=== PATIENT | female | born 1940 | race Caucasian/White ===

== ENCOUNTER 2017-04-05 21:05 | Inpatient (IN) ==
--- NOTE | 2017-04-05 21:26 | Emergency Department Note ---
Disposition Clinical Impression: Urinary tract infection Qualifiers: Urinary tract infection type: acute cystitis Hematuria presence: without hematuria Qualified Code(s): N30.00 - Acute cystitis without hematuria Altered mental status Qualifiers: Altered mental status type: transient alteration of awareness Qualified Code(s) : R40.4 - Transient alteration of awareness Disposition: Admitted As Inpatient Condition: Fair Referrals: Neal Jacobsen MD [Primary Care Provider] - Forms: Work/School Release, ED Satisfaction Letter Altered Mental Status HPI - General Chief Complaint: ED General Medical Stated Complaint: lethargy Time Seen by Provider: 04/05/17 21:23 Source: EMS Mode of arrival: EMS Limitations: altered mental status Nursing Notes Reviewed: Yes Vital Signs Reviewed: Yes - History of Present Illness HPI Narrative: Patient reportedly was difficult to arouse at the intermediate. She had been laying around most the day and she is reported to have an oxygen saturation of 70% on room air that increased to 93% on 5 L. She is afebrile with a temperature 99.3, respiratory rate of 28, heart rate 92 and blood pressure 119/ 61. Squad was called to have her brought in for evaluation and she was agitated and yelling out for the squad. Family notes that she has had episodes like this before when she has a urinary tract infection. She usually will yell out but she is understandable words here she is doing some random sounds and vocalization. She was able to wake up enough to tell me that she was "sleepy all day" she indicates that she had some soreness in her left shoulder that I was rubbing to get her to open her eyes and respond. She denied headache, chest pain, shortness of breath, abdominal pain, nausea or diarrhea. She has had this a second time that she was just sleepy. Shortly thereafter she again started relatively yelling and was agitated. complaint: altered mental status, decreased responsiveness Onset (ago): hour(s) Timing confirmed by: caregiver Pain Severity: moderate Consistency of Symptoms: waxing and waning Context: history of similar presentation, diabetes, COPD, history psychiatric disease Associated symptoms: Reports: malaise ("Sleepy all day"). Denies: chest pain, cough, diaphoresis, fever, chills, headaches, loss of appetite, nausea/vomiting , rash, seizure, shortness of breath, syncope, weakness, foul smelling urine, difficulty walking, diarrhea, incontinence - Related Data Home Medications Medication Instructions Recorded Confirmed Bisacodyl [Woman's Laxative] 10 mg PO DAILY PRN 04/05/17 04/05/17 Budesonide/Formoterol 160/4.5 1 puff IH BIDR 04/05/17 04/05/17 [Symbicort 160/4.5] CarBAMazepine XR [Tegretol Xr] 100 mg PO DAILY 04/05/17 04/05/17 Cetirizine HCl [Zyrtec] 10 mg PO DAILY 04/05/17 04/05/17 Chlorpromazine HCl 200 mg PO DAILY 04/05/17 04/05/17 Citalopram [CeleXA] 20 mg PO DAILY 04/05/17 04/05/17 Clopidogrel [Plavix] 75 mg PO DAILY 04/05/17 04/05/17 Divalproex (24 HR) [Depakote ER 500 mg PO HS 04/05/17 04/05/17 (24 HR)] Divalproex Sodium [Depakote] 250 mg PO HS 04/05/17 04/05/17 Ergocalciferol (VITAMIN D2) 50,000 unit PO DAILY 04/05/17 04/05/17 [Vitamin D2] Fenofibrate Nanocrystallized 160 mg PO DAILY 04/05/17 04/05/17 [Triglide] Fluticasone Propionate Nasal 50 mcg NS DAILY 04/05/17 04/05/17 [Flonase] Furosemide [Lasix] 20 mg PO DAILY 04/05/17 04/05/17 HYDROcodone/Acet 5/325 mg [[place] 1 tab PO Q6H PRN 04/05/17 04/05/17 5-325 mg] Ibuprofen [Motrin] 600 mg PO Q6HR PRN 04/05/17 04/05/17 Insulin ASPART [NovoLOG] 1 unit SQ BID 04/05/17 04/05/17 Insulin Glargine [Lantus] 43 unit SQ HS 04/05/17 04/05/17 Lactulose [Kristalose] 20 gm PO DAILY PRN 04/05/17 04/05/17 Levothyroxine [Synthroid] 88 mcg PO 0630 04/05/17 04/05/17 Loperamide HCl [Imodium A-D] 2 mg PO Q4H PRN 04/05/17 04/05/17 Medroxyprogesterone Acetate 5 mg PO DAILY 04/05/17 04/05/17 [Provera] Metformin HCl [Fortamet] 500 mg PO DAILY 04/05/17 04/05/17 Metoprolol XL (24 HR) Succ [Toprol 50 mg PO DAILY 04/05/17 04/05/17 XL] Multivitamin [Multivitamins] 1 each PO DAILY 04/05/17 04/05/17 Ranitidine HCl [Acid Noodle Press Operator] 75 mg PO BID 04/05/17 04/05/17 Travoprost [Travatan Z] 5 ml OP BID 04/05/17 04/05/17 Trihexyphenidyl HCl 1 mg PO DAILY 04/05/17 04/05/17 carBAMazepine [Tegretol Xr] 200 mg PO BID 04/05/17 04/05/17 Allergies Allergy/AdvReac Type Severity Reaction Status Date / Time tuberculin, purified protein Allergy Hives Verified 04/05/17 21:08 deriva Limitations: ROS unobtainable due to patients medical condition Past Medical History - Past Medical History Attestation: Yes The following information was validated with the patient. 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 Absent: scleral icterus, conjunctival injection - ENT ENT exam: normal exam, normal oropharynx, mucous membranes moist - Neck Neck exam: Present: normal inspection, full ROM, trachea midline. Absent: tenderness, meningismus - Chest Chest inspection: Present: normal inspection, symmetric chest wall rise - Respiratory Respiratory exam: Present: normal lung sounds bilaterally. Absent: respiratory distress, wheezes, prolonged expiratory phase - Cardiovascular Cardiovascular exam: Present: regular rate, normal rhythm, normal heart sounds - Abdominal Exam Abdominal exam: Present: soft, Non-Tender, normal bowel sounds. Absent: tenderness, distention, guarding, rebound, rigidity - Extremities Exam Extremities exam: Present: normal inspection, full ROM, normal capillary refill. Absent: tenderness, pedal edema, calf tenderness - Expanded Lower Extremity Exam Neurovascular/Tendon exam: Present: normal capillary refill. Absent: motor deficit, sensory deficit, tendon deficit Gait: observed and normal - Back Exam Back exam: Present: normal inspection, full ROM. Absent: tenderness, CVA tenderness (R), CVA tenderness (L) - Neurological Exam Neurological exam: Present: alert. Absent: oriented X3 - Psychiatric Psychiatric exam: Present: agitated, anxious - Skin Skin exam: Present: warm, dry, intact, normal color. Absent: rash, diaphoresis , pallor Course Course Narrative: With return of all labs and imaging, the patient appears to have altered mental status again secondary to urinary tract infection. Care has been discussed with the family and subsequently with Dr. Gibson. Verbal orders have been obtained for the patient's observation. Vital Signs Temperature 99.7 F H 04/05/17 21:08 Pulse Rate 91 04/05/17 21:08 Respiratory Rate 28 04/05/17 21:08 Blood Pressure 125/61 04/05/17 21:08 O2 Sat by Pulse Oximetry 91 04/05/17 21:08 Temperature 99.7 F H 04/05/17 21:08 Pulse Rate 94 04/05/17 23:01 Respiratory Rate 16 04/05/17 23:01 Blood Pressure 128/66 04/05/17 23:01 O2 Sat by Pulse Oximetry 94 04/05/17 23:01 Oxygen Delivery Oxygen Delivery Nasal Cannula Altered Mental Status - Differential Diagnosis Likely: altered mental status, delirium, hypoglycemia, hyponatremia, psychiatric disease, sepsis - Medical Records Medical records reviewed: Yes I reviewed the patient's medical records. - Lab Data Lab results reviewed: Yes I reviewed the patient's lab results. Result diagrams: 04/05/17 21:48 04/05/17 21:48 Lab Results 04/05/17 04/05/17 04/05/17 Range/Units 21:24 21:39 21:39 WBC (4.3-11.1) K/mcL RBC (3.82-4.97) M/mcL Hgb (11.5-15.4) g/dL Hct (35.3-44.9) % MCV (83.0-100.0) fL MCH (28.0-33.3) pg MCHC (31.6-35.5) g/dL RDW (11.5-14.5) % Plt Count (140-400) K/mcL MPV (9.4-12.4) fL Immature Gran % (0-4) % Seg Neutrophils % % Lymphocytes % % Monocytes % % Eosinophils % % Basophils % % Neutrophils # (1.6-8.9) K/mcL Lymphocytes # (0.6-4.6) K/mcL Monocytes # (0.0-1.3) K/mcL Eosinophils # (0.0-0.6) K/mcL Basophils # (0.0-0.2) K/mcL PT (9.4-12.1) Seconds INR APTT (26.0-36.0) Seconds ABG pH (7.32-7.45) pH Units ABG pCO2 (35-45) mmHg ABG pO2 (85-104) mmHg ABG HCO3 (21-27) mEq/L ABG Total CO2 (20-26) mEq/L ABG O2 Saturation (95-98) % ABG Base Excess (-2.0 to 3.0) mEq/L VBG Lactic Acid (0.5-2.2) mmol/L Liter Flow L/MIN Blood Gas Modality Sodium (136-145) mEq/L Potassium (3.5-4.5) mEq/L Chloride (98-109) mEq/L Carbon Dioxide (19-29) mEq/L BUN (7-20) mg/dL Creatinine (0.57-1.11) mg/dL Est GFR ( Amer) (> 60) Est GFR (Non-Af Amer) (> 60) BUN/Creatinine Ratio (6-26) Glucose (70-99) mg/dL POC Glucose 344 H (58-89) Calculated Osmolality (280-300) Calcium (8.6-10.8) mg/dL Total Bilirubin (0.2-1.2) mg/dL Direct Bilirubin (0.0-0.5) mg/dL Indirect Bilirubin (0.0-1.2) mg/dL AST (5-34) Units/L ALT (0-55) Units/L Alkaline Phosphatase (38-126) Units/L Troponin I (0-0.03) ng/mL Serum Total Protein (6.0-8.3) g/dL Albumin (3.5-5.0) g/dL Globulin (2.4-3.5) g/dL Albumin/Globulin Ratio (1.1-2.2) Ur Specimen Adequacy See below A Urine Color Dark Yellow (Yellow) Urine Clarity Turbid A (Clear) Urine pH 6.0 (5.0-8.0) pH Units Ur Specific [place] 1.020 (1.010-1.025) Urine Protein 100 H (Neg-Trace) mg/dL Urine Glucose (UA) Normal (Normal) mg/dL Urine Ketones Negative (Negative) mg/dL Urine Blood Small H (Negative) Urine Nitrite Negative (Negative) Urine Bilirubin Moderate H (Negative) Urine Urobilinogen 2.0 H (Normal) mg/dL Ur Leukocyte Esterase Large H (Negative) Urine Microscopic RBC 3-5 H (0-3) per hpf Urine Microscopic WBC TNTC H (0-3) per hpf Ur Squamous Epith Cells Few (None-Few) per lpf Ur Transition Epith Cell Few (None-Few) per hpf Urine Bacteria Many H (None-Few) per hpf Ur Culture Indicated? YES A (NO) Urine Opiates Screen Negative (Ikolbe=430) ng/mL Ur Oxycodone Screen Negative (Cutoff= 100) ng/mL Ur Barbiturates Screen Negative (Vjidkj=646) ng/mL Ur Phencyclidine Scrn Negative (Cutoff=25) ng/mL Ur Amphetamines Screen Negative (Ktofcz=4356) ng/mL U Benzodiazepines Scrn Negative (Jwqgib=317) ng/mL Urine Cocaine Screen Negative (Cutoff= 300) ng/mL U Marijuana (THC) Screen Negative (Cutoff = 50) ng/mL 04/05/17 04/05/17 04/05/17 Range/Units 21:48 21:48 21:48 WBC 8.1 (4.3-11.1) K/mcL RBC 4.02 (3.82-4.97) M/mcL Hgb 11.8 (11.5-15.4) g/dL Hct 37.3 (35.3-44.9) % MCV 92.8 (83.0-100.0) fL MCH 29.4 (28.0-33.3) pg MCHC 31.6 (31.6-35.5) g/dL RDW 13.3 (11.5-14.5) % Plt Count 297 (140-400) K/mcL MPV 9.9 (9.4-12.4) fL Immature Gran % 1.2 (0-4) % Seg Neutrophils % 68.1 % Lymphocytes % 12.4 % Monocytes % 15.7 % Eosinophils % 1.7 % Basophils % 0.9 % Neutrophils # 5.5 (1.6-8.9) K/mcL Lymphocytes # 1.0 (0.6-4.6) K/mcL Monocytes # 1.3 (0.0-1.3) K/mcL Eosinophils # 0.1 (0.0-0.6) K/mcL Basophils # 0.1 (0.0-0.2) K/mcL PT 14.6 H (9.4-12.1) Seconds INR 1.3 APTT 33.4 (26.0-36.0) Seconds ABG pH (7.32-7.45) pH Units ABG pCO2 (35-45) mmHg ABG pO2 (85-104) mmHg ABG HCO3 (21-27) mEq/L ABG Total CO2 (20-26) mEq/L ABG O2 Saturation (95-98) % ABG Base Excess (-2.0 to 3.0) mEq/L VBG Lactic Acid (0.5-2.2) mmol/L Liter Flow L/MIN Blood Gas Modality Sodium 131 L (136-145) mEq/L Potassium 4.9 H (3.5-4.5) mEq/L Chloride 91 L (98-109) mEq/L Carbon Dioxide 30 H (19-29) mEq/L BUN 26 H (7-20) mg/dL Creatinine 1.30 H (0.57-1.11) mg/dL Est GFR ( Amer) 48 L (> 60) Est GFR (Non-Af Amer) 40 L (> 60) BUN/Creatinine Ratio 20 (6-26) Glucose 274 H (70-99) mg/dL POC Glucose (58-89) Calculated Osmolality 287 (280-300) Calcium 9.8 (8.6-10.8) mg/dL Total Bilirubin 0.6 (0.2-1.2) mg/dL Direct Bilirubin 0.4 (0.0-0.5) mg/dL Indirect Bilirubin 0.2 (0.0-1.2) mg/dL AST 25 (5-34) Units/L ALT 28 (0-55) Units/L Alkaline Phosphatase 84 (38-126) Units/L Troponin I (0-0.03) ng/mL Serum Total Protein 6.9 (6.0-8.3) g/dL Albumin 2.7 L (3.5-5.0) g/dL Globulin 4.2 H (2.4-3.5) g/dL Albumin/Globulin Ratio 0.6 L (1.1-2.2) Ur Specimen Adequacy Urine Color (Yellow) Urine Clarity (Clear) Urine pH (5.0-8.0) pH Units Ur Specific [place] (1.010-1.025) Urine Protein (Neg-Trace) mg/dL Urine Glucose (UA) (Normal) mg/dL Urine Ketones (Negative) mg/dL Urine Blood (Negative) Urine Nitrite (Negative) Urine Bilirubin (Negative) Urine Urobilinogen (Normal) mg/dL Ur Leukocyte Esterase (Negative) Urine Microscopic RBC (0-3) per hpf Urine Microscopic WBC (0-3) per hpf Ur Squamous Epith Cells (None-Few) per lpf Ur Transition Epith Cell (None-Few) per hpf Urine Bacteria (None-Few) per hpf Ur Culture Indicated? (NO) Urine Opiates Screen (Apzqwo=912) ng/mL Ur Oxycodone Screen (Cutoff= 100) ng/mL Ur Barbiturates Screen (Ypdqcn=991) ng/mL Ur Phencyclidine Scrn (Cutoff=25) ng/mL Ur Amphetamines Screen (Fskaeg=5178) ng/mL U Benzodiazepines Scrn (Palwnu=867) ng/mL Urine Cocaine Screen (Cutoff= 300) ng/mL U Marijuana (THC) Screen (Cutoff = 50) ng/mL 04/05/17 04/05/17 04/05/17 Range/Units 21:48 22:00 22:30 WBC (4.3-11.1) K/mcL RBC (3.82-4.97) M/mcL Hgb (11.5-15.4) g/dL Hct (35.3-44.9) % MCV (83.0-100.0) fL MCH (28.0-33.3) pg MCHC (31.6-35.5) g/dL RDW (11.5-14.5) % Plt Count (140-400) K/mcL MPV (9.4-12.4) fL Immature Gran % (0-4) % Seg Neutrophils % % Lymphocytes % % Monocytes % % Eosinophils % % Basophils % % Neutrophils # (1.6-8.9) K/mcL Lymphocytes # (0.6-4.6) K/mcL Monocytes # (0.0-1.3) K/mcL Eosinophils # (0.0-0.6) K/mcL Basophils # (0.0-0.2) K/mcL PT (9.4-12.1) Seconds INR APTT (26.0-36.0) Seconds ABG pH 7.25 L (7.32-7.45) pH Units ABG pCO2 78 H* (35-45) mmHg ABG pO2 76 L (85-104) mmHg ABG HCO3 34 H (21-27) mEq/L ABG Total CO2 36.3 H (20-26) mEq/L ABG O2 Saturation 91 L (95-98) % ABG Base Excess 6.6 H (-2.0 to 3.0) mEq/L VBG Lactic Acid 0.8 (0.5-2.2) mmol/L Liter Flow 4 L/MIN Blood Gas Modality NC Sodium (136-145) mEq/L Potassium (3.5-4.5) mEq/L Chloride (98-109) mEq/L Carbon Dioxide (19-29) mEq/L BUN (7-20) mg/dL Creatinine (0.57-1.11) mg/dL Est GFR ( Amer) (> 60) Est GFR (Non-Af Amer) (> 60) BUN/Creatinine Ratio (6-26) Glucose (70-99) mg/dL POC Glucose (58-89) Calculated Osmolality (280-300) Calcium (8.6-10.8) mg/dL Total Bilirubin (0.2-1.2) mg/dL Direct Bilirubin (0.0-0.5) mg/dL Indirect Bilirubin (0.0-1.2) mg/dL AST (5-34) Units/L ALT (0-55) Units/L Alkaline Phosphatase (38-126) Units/L Troponin I 0.01 (0-0.03) ng/mL Serum Total Protein (6.0-8.3) g/dL Albumin (3.5-5.0) g/dL Globulin (2.4-3.5) g/dL Albumin/Globulin Ratio (1.1-2.2) Ur Specimen Adequacy Urine Color (Yellow) Urine Clarity (Clear) Urine pH (5.0-8.0) pH Units Ur Specific [place] (1.010-1.025) Urine Protein (Neg-Trace) mg/dL Urine Glucose (UA) (Normal) mg/dL Urine Ketones (Negative) mg/dL Urine Blood (Negative) Urine Nitrite (Negative) Urine Bilirubin (Negative) Urine Urobilinogen (Normal) mg/dL Ur Leukocyte Esterase (Negative) Urine Microscopic RBC (0-3) per hpf Urine Microscopic WBC (0-3) per hpf Ur Squamous Epith Cells (None-Few) per lpf Ur Transition Epith Cell (None-Few) per hpf Urine Bacteria (None-Few) per hpf Ur Culture Indicated? (NO) Urine Opiates Screen (Mzxmow=229) ng/mL Ur Oxycodone Screen (Cutoff= 100) ng/mL Ur Barbiturates Screen (Bzimny=565) ng/mL Ur Phencyclidine Scrn (Cutoff=25) ng/mL Ur Amphetamines Screen (Ylmwzk=9880) ng/mL U Benzodiazepines Scrn (Tdvqzi=034) ng/mL Urine Cocaine Screen (Cutoff= 300) ng/mL U Marijuana (THC) Screen (Cutoff = 50) ng/mL - Radiology Data Radiology results reviewed: Yes I reviewed the patient's radiology results. Single view chest x-ray is performed. This does not demonstrate evidence for infiltrate, effusion, pneumothorax, foreign body or heart failure. The cardiac silhouette is normal. I do not see abnormality to the osseous structures of the chest. This is on my interpretation. CT head is performed. This is reviewed on bone and soft tissue windows. There is no evidence for acute intracranial bleed, shift, mass or edema. The patient does have an intact shunt and apparent previous stroke. Mastoids and sinuses appear normal. There is no fracture evident. This is on my interpretation. Impressions Chest X-Ray 04/05/17 21:23 IMPRESSION: Suggestion of pulmonary vascular congestion. Otherwise negative limited portable chest radiograph. D/ / Erick Carranza MD / Erick Carranza MD Interpreting Provider: Erick Carranza MD Head CT 04/05/17 21:24 IMPRESSION: Limited study with no definite acute abnormality. Repeat imaging could be considered once the patient is able to remain still. D/ / Angelo Osuna MD / Angelo Osuna MD Interpreting Provider: Angelo Osuna MD - EKG Data EKG attestation: Yes I reviewed and interpreted this EKG. EKG shows normal: sinus rhythm, axis, QRS complexes, ST-T waves Rate: normal (95) Heart block present: 1st Degree Interpretation: no acute changes, other (Motion artifacts) TPA Checklist - LKW: 3-4.5 hrs Add. Warnings/Precautions Patient/family understanding: The patient/family members have been counseled and understood the risk, benefit , and alternatives of treatment.
[2017-04-05] MEDS ORDERED: 0.9 % Sodium Chloride 1,000 ML IVC SCH (21:30)
[2017-04-05 21:46] LABS: Bilirubin,Urine Moderate (Negative); Blood,Urine Small (Negative); Clarity,Urine Turbid (Clear); Color,Urine Dark Yellow (Yellow); Glucose,Urine (UA) Normal (Normal); Ketones,Urine Negative (Negative); Leukocyte Esterase,Urine Large (Negative); Nitrite,Urine Negative (Negative); Protein,Urine 100 mg/dL (Neg-Trace)
[2017-04-05 21:56] LABS: Basophils # 0.1 K/mcL (0.0-0.2); Basophils % 0.9 %; Eosinophils # 0.1 K/mcL (0.0-0.6); Eosinophils % 1.7 %; Hematocrit 37.3 % (35.3-44.9); Hemoglobin 11.8 g/dL (11.5-15.4); Immature Granulocytes % 1.2 % (0-4); Lymphocytes % 12.4 %; Mean Corpuscular HGB Conc 31.6 g/dL (31.6-35.5); Mean Corpuscular Hemoglobin 29.4 pg (28.0-33.3); Mean Corpuscular Volume 92.8 fL (83.0-100.0); Mean Platelet Volume 9.9 fL (9.4-12.4); Monocytes # 1.3 K/mcL (0.0-1.3); Monocytes % 15.7 %; Neutrophils # 5.5 K/mcL (1.6-8.9); Platelet Count 297 K/mcL (140-400); Red Blood Count 4.02 M/mcL (3.82-4.97); Red Cell Distribution Width 13.3 % (11.5-14.5); Segmented Neutrophils % 68.1 %
[2017-04-05 21:59] LABS: Bacteria,Urine Many per hpf (None-Few); Squamous Epithelial Cell,Urine Few per lpf (None-Few); Transitional Epi Cells,Urine Few per hpf (None-Few); WBC,Urine TNTC per hpf (0-3)
[2017-04-05 22:05] LABS: Amphetamine Screen,Urine Negative ng/mL (Cutoff=1000); Barbiturate Screen,Urine Negative ng/mL (Cutoff=200); Benzodiazepines Screen,Urine Negative ng/mL (Cutoff=200); Cannabinoid Screen,Urine Negative ng/mL (Cutoff = 50); Cocaine Screen,Urine Negative ng/mL (Cutoff= 300); Opiate Screen,Urine Negative ng/mL (Cutoff=300); Phencyclidine Screen,Urine Negative ng/mL (Cutoff=25)
[2017-04-05 22:06] LABS: Blood Gas Liter Flow 4 L/MIN
[2017-04-05] MEDS ORDERED: *HR* LORazepam 2 MG/ML VIAL IVP ONE (22:07)
[2017-04-05 22:08] LABS: INR 1.3; Prothrombin Time 14.6 Seconds (9.4-12.1)
[2017-04-05 22:09] LABS: ABG Base Excess 6.6 mEq/L (-2.0 to 3.0); ABG HCO3 34 mEq/L (21-27); ABG Oxygen Saturation 91 % (95-98); ABG PH 7.25 pH Units (7.32-7.45); ABG PO2 76 mmHg (85-104); ABG TCO2 36.3 mEq/L (20-26)
[2017-04-05 22:10] LABS: ABG PCO2 78 mmHg (35-45)
[2017-04-05 22:11] LABS: Activated Partial Thrombo Time 33.4 Seconds (26.0-36.0)
[2017-04-05 22:12] LABS: Albumin 2.7 g/dL (3.5-5.0); Albumin/Globulin Ratio 0.6 (1.1-2.2); Bilirubin,Direct 0.4 mg/dL (0.0-0.5); Bilirubin,Indirect 0.2 mg/dL (0.0-1.2); Bilirubin,Total 0.6 mg/dL (0.2-1.2); Calcium 9.8 mg/dL (8.6-10.8); Globulin 4.2 g/dL (2.4-3.5); Potassium 4.9 mEq/L (3.5-4.5); Total Protein 6.9 g/dL (6.0-8.3)
[2017-04-06] MEDS ORDERED: Albuterol 2.5 MG/3 ML NEBULIZER IH PRN (00:30)
[2017-04-06] MEDS ORDERED: Naloxone 0.4 MG/ML INJ IVP PRN (00:30)
[2017-04-06] MEDS ORDERED: *HR* Dextrose 50 % in Water (Syg) 50 ML SYRINGE IVP PRN (00:30)
[2017-04-06] MEDS ORDERED: Lactulose Oral Soln 20 GM/30 ML UDC PO PRN (00:30)
[2017-04-06] MEDS ORDERED: Ondansetron 4 MG/2 ML VIAL IVP PRN (00:30)
[2017-04-06] MEDS ORDERED: D5% in Water 1,000 ML IVC PRN (00:30)
[2017-04-06] MEDS ORDERED: Dextrose Gel 15 GM PO PRN ×2 (00:30)
[2017-04-06] MEDS ORDERED: Ibuprofen 600 MG TABLET PO PRN (00:30)
[2017-04-06] MEDS ORDERED: 0.9 % Sodium Chloride 1,000 ML IVC SCH (00:30)
[2017-04-06] MEDS: Ipratropium/Albuterol Neb 3 ML IH SCH ×2 (04:10→09:53)
[2017-04-06 08:16] LABS: ABG PH 7.26 pH Units (7.32-7.45)
[2017-04-06 08:17] LABS: ABG HCO3 34 mEq/L (21-27); ABG PCO2 75 mmHg (35-45); ABG PO2 75 mmHg (85-104)
[2017-04-06 08:18] LABS: ABG Base Excess 6.5 mEq/L (-2.0 to 3.0); ABG Oxygen Saturation 92 % (95-98); ABG TCO2 35.9 mEq/L (20-26); Blood Gas FiO2 32 %; Blood Gas Liter Flow 3 L/MIN
[2017-04-06] MEDS ORDERED: *HR* Metformin 500 MG TABLET PO SCH (09:00)
[2017-04-06] MEDS ORDERED: Famotidine 20 MG TABLET PO SCH (09:00)
[2017-04-06] MEDS ORDERED: Furosemide 20 MG TABLET PO SCH (09:00)
[2017-04-06] MEDS ORDERED: Loratadine 10 MG TABLET PO SCH (09:00)
[2017-04-06] MEDS: Miconazole 2% cream 118 GM TUBE TP SCH ×2 (09:17→16:35)
[2017-04-06] MEDS: Insulin LISPRO 300 UNITS/3 ML VIAL SQ SCH ×4 (10:28→21:11)
[2017-04-06] MEDS: Metoprolol XL (24 HR) Succ 50 MG TAB.ER.24H PO SCH (10:32)
[2017-04-06] MEDS: chlorproMAZINE 25 MG TABLET PO SCH (10:32)
[2017-04-06] MEDS: Fenofibrate 54 MG TABLET PO SCH (10:32)
[2017-04-06] MEDS: CarBAMazepine XR (12 hr) 100 MG TAB PO SCH ×3 (10:32→21:09)
[2017-04-06] MEDS: Latanoprost 2.5 ML BOTTLE BOTH EYES SCH ×2 (10:43→21:10)
--- NOTE | 2017-04-06 11:56 | Internal Med History&Physical ---
Date of Encounter: 04/06/17 Time of Encounter: 11:25 Assessment and Plan (1) Urinary tract infection Current visit: Yes Status: Acute She has been started on Rocephin. I will add lactobacillus. Urine culture has been ordered. Qualifiers: Urinary tract infection type: acute cystitis Hematuria presence: without hematuria Qualified Code(s): N30.00 - Acute cystitis without hematuria (2) Altered mental status Current visit: Yes Status: Acute Suspect multifactorial etiology. Will order BiPAP to improve respiratory status. Further workup will be done as needed. Qualifiers: Altered mental status type: unspecified Qualified Code(s): R41.82 - Altered mental status, unspecified (3) DM type 2 (diabetes mellitus, type 2) Current visit: Yes Status: Chronic Hemoglobin A1c was 6.2% on 02/10/2017. We will continue skilled nursing regimen and do Accu-Cheks with SSI. Qualifiers: Diabetes mellitus complication status: with kidney complications Diabetes mellitus complication detail: with chronic kidney disease Diabetes mellitus termite control servicer insulin use: with fdc use Chronic kidney disease stage: stage 3 (moderate) Qualified Code(s): E11.22 - Type 2 diabetes mellitus with diabetic chronic kidney disease; N18.3 - Chronic kidney disease, stage 3 ( moderate); Z79.4 - [facility] (current) use of insulin (4) CKD (chronic kidney disease) stage 3, GFR 30-59 ml/min Current visit: Yes Status: Chronic We will monitor renal indices periodically. (5) Hypothyroidism Current visit: Yes Status: Chronic TSH was normal at 1.930 02/10/2017. Continue Synthroid. Qualifiers: Hypothyroidism type: unspecified Qualified Code(s): E03.9 - Hypothyroidism , unspecified Internal Medicine - H&P: HPI Chief complaint: Obtundation Admitted From: Long-term Nursing Facility Plans for Post Hospital Care: Transfer [facility] History of present illness: Ms. Rodriguez is a 76 year old female who was sent to emergency from the skilled nursing after staff reported her to been lethargic most of the day. She was reported to have hypoxemia with saturation of 70% on room air. She had low grade fever. She was evaluated emergency room and felt to have UTI. ABG showed acute respiratory insufficiency with hypercarbia. She was admitted to [facility] floor for ongoing care needs. She is obtunded and could not give any additional history. Past Med Surg Social Fam HX - Past Medical History Medical history: atrial fibrillation, CHF, COPD, coronary artery disease, dementia, diabetes, GERD, hyperlipidemia, hypertension, thyroid disease, other Psychiatric history: anxiety, depression, schizophrenia - Past Surgical History Surgical History: knee replacement, orthopedic, other, other - Social History Smoking Status: Never smoker Smokeless Tobacco Status: No Alcohol use: none Drug use: none Internal Medicine - H&P: Meds Bisacodyl [Woman's Laxative] 10 mg PO DAILY PRN 04/05/17 [History] Budesonide/Formoterol 160/4.5 [Symbicort 160/4.5] 1 puff IH BIDR 04/05/17 [ History] CarBAMazepine XR [Tegretol Xr] 100 mg PO DAILY 04/05/17 [History] Cetirizine HCl [Zyrtec] 10 mg PO DAILY 04/05/17 [History] Chlorpromazine HCl 200 mg PO DAILY 04/05/17 [History] Citalopram [CeleXA] 20 mg PO DAILY 04/05/17 [History] Clopidogrel [Plavix] 75 mg PO DAILY 04/05/17 [History] Divalproex (24 HR) [Depakote ER (24 HR)] 500 mg PO HS 04/05/17 [History] Divalproex Sodium [Depakote] 250 mg PO HS 04/05/17 [History] Ergocalciferol (VITAMIN D2) [Vitamin D2] 50,000 unit PO DAILY 04/05/17 [History] Fenofibrate Nanocrystallized [Triglide] 160 mg PO DAILY 04/05/17 [History] Fluticasone Propionate Nasal [Flonase] 50 mcg NS DAILY 04/05/17 [History] Furosemide [Lasix] 20 mg PO DAILY 04/05/17 [History] HYDROcodone/Acet 5/325 mg [[place] 5-325 mg] 1 tab PO Q6H PRN 04/05/17 [History] Ibuprofen [Motrin] 600 mg PO Q6HR PRN 04/05/17 [History] Insulin ASPART [NovoLOG] 1 unit SQ BID 04/05/17 [History] Insulin Glargine [Lantus] 43 unit SQ HS 04/05/17 [History] Lactulose [Kristalose] 20 gm PO DAILY PRN 04/05/17 [History] Levothyroxine [Synthroid] 88 mcg PO 0630 04/05/17 [History] Loperamide HCl [Imodium A-D] 2 mg PO Q4H PRN 04/05/17 [History] Medroxyprogesterone Acetate [Provera] 5 mg PO DAILY 04/05/17 [History] Metformin HCl [Fortamet] 500 mg PO DAILY 04/05/17 [History] Metoprolol XL (24 HR) Succ [Toprol XL] 50 mg PO DAILY 04/05/17 [History] Multivitamin [Multivitamins] 1 each PO DAILY 04/05/17 [History] Ranitidine HCl [Acid Marine Insurance Claim Examiner] 75 mg PO BID 04/05/17 [History] Travoprost [Travatan Z] 5 ml OP BID 04/05/17 [History] Trihexyphenidyl HCl 1 mg PO DAILY 04/05/17 [History] carBAMazepine [Tegretol Xr] 200 mg PO BID 04/05/17 [History] 3 Allergy/AdvReac Type Severity Reaction Status Date / Time tuberculin, purified protein Allergy Hives Verified 04/05/17 21:08 deriva All Systems PM: A 10-system review of systems was performed and is negative for pertinent findings except as documented above in the HPI. Review of systems: Review of systems is unobtainable from the patient. The following is obtained from review of available records. Gen.: Her weight has decreased from 127.006 kg on 07/29/2014 to 115.53 kg today Cardiovascular: She has history of hypertension, CHF, and ASHD not otherwise specified, but no documented DVT or pulmonary embolus Respiratory: Her smoking history is not known. She has diagnosis of COPD and NANCY GI: There is no documented disorder of her liver gallbladder or exocrine pancreas. She has GERD : No mention of hematuria dysuria or kidney stones. She has had azotemia consistent with chronic kidney disease stage 2-3 from review of available labs. Neurologic: She has dementia. She has history of brain tumor not otherwise specified. She has had ventriculoperitoneal shunt placement for normal pressure hydrocephalus. Endocrine: She has DM 2 hypothyroidism and hyperlipidemia Hematology/oncology: History of blood disorders or cancers or anemia Psychiatric: She has depression and dementia and psychosis not otherwise specified Musk skeletal: There is no known gout or osteoporosis. - Constitutional Vitals: Temp Pulse Resp BP Pulse Ox 98.9 F 89 12 127/72 98 04/06/17 10:26 04/06/17 10:26 04/06/17 10:26 04/06/17 10:04/06/17 10:26 Exam: Gen.: She is a well-developed obese female lying in bed who appears comfortable. She does not respond to voice or light touch. She is wearing BiPAP. HEENT: Head is atraumatic and normocephalic. Eyes: She does not open her eyes spontaneously. Her gaze appears conjugate on manual elevation of the eyelids. Mouth: Mucosa is not visualized. The tip of her tongue appears dry. Neck: There is no thyromegaly or adenopathy noted. Heart: Regular without murmurs gallops or ectopics Lungs: No wheezes or crackles are heard. Abdomen: She has a large abdomen. No masses or guarding are noted. Extremities: There is no cyanosis edema or clubbing noted. Dorsalis pedis and posttibial pulses are trace palpable bilaterally. Neurologic: Mental status: She does not respond to voice or light touch. Cranial nerves: She makes no spontaneous facial movements. Her gaze appears conjugate. Motor: She has equal arm tone on passive range of motion. No further neurologic testing is attempted. Skin: She has widespread yeast infection of the skin on her back and left anterior lateral torso area. Internal Med - H&P Results - Labs CBC & Chem 7: 04/05/17 21:48 04/05/17 21:48 - ABG Interpretation ABG results: 04/06/17 08:00 ABG pH 7.26 L ABG pCO2 75 H* ABG pO2 75 L ABG HCO3 34 H ABG Total CO2 35.9 H ABG O2 Saturation 92 L ABG Base Excess 6.5 H - VTE Documentation of Mechanical Device: Graduated compression elastic hosiery
[2017-04-06 12:22] LABS: ABG PH 7.22 pH Units (7.32-7.45)
[2017-04-06 12:23] LABS: ABG Base Excess 6.5 mEq/L (-2.0 to 3.0); ABG HCO3 34 mEq/L (21-27); ABG Oxygen Saturation 96 % (95-98); ABG PCO2 84 mmHg (35-45); ABG PO2 103 mmHg (85-104); ABG TCO2 36.9 mEq/L (20-26)
[2017-04-06 12:24] LABS: Blood Gas BiPAP(E) 6 cm H2O; Blood Gas BiPAP(I) 12 cm H2O; Blood Gas FiO2 45 %; Blood Gas Respiration Rate 12
[2017-04-06] MEDS: Fluconazole 100 MG TABLET PO SCH (12:39)
[2017-04-06 14:33] LABS: ABG PH 7.23 pH Units (7.32-7.45)
[2017-04-06 14:34] LABS: ABG Base Excess 7.5 mEq/L (-2.0 to 3.0); ABG HCO3 35 mEq/L (21-27); ABG PCO2 83 mmHg (35-45); ABG PO2 98 mmHg (85-104); ABG TCO2 37.6 mEq/L (20-26)
[2017-04-06 14:35] LABS: ABG Oxygen Saturation 96 % (95-98); Blood Gas BiPAP(E) 8 cm H2O; Blood Gas BiPAP(I) 18 cm H2O; Blood Gas FiO2 45 %; Blood Gas Respiration Rate 12
[2017-04-06 20:26] LABS: ABG PH 7.23 pH Units (7.32-7.45)
[2017-04-06 20:27] LABS: ABG PCO2 89 mmHg (35-45); ABG PO2 120 mmHg (85-104)
[2017-04-06 20:28] LABS: ABG Base Excess 5.5 mEq/L (-2.0 to 3.0); ABG HCO3 37 mEq/L (21-27); ABG Oxygen Saturation 97 % (95-98); ABG TCO2 39.6 mEq/L (20-26); Blood Gas BiPAP(E) 8 cm H2O; Blood Gas BiPAP(I) 18 cm H2O; Blood Gas FiO2 45 %
[2017-04-06] MEDS ORDERED: INSULIN GLARGINE SQ SCH (21:00)
[2017-04-06] MEDS ORDERED: Divalproex (12 HR) 250 MG TABLET PO SCH (21:00)
[2017-04-06] MEDS ORDERED: Divalproex (24 HR) 500 MG TABLET PO SCH (21:00)
[2017-04-06] MEDS: Insulin DETEMIR 100 UNIT/ML per UNIT SQ SCH (21:10)
[2017-04-06] MEDS: Lactobacillus 1 EACH CAP.SPRINK PO SCH (21:10)
[2017-04-06] MEDS ORDERED: *HR* LORazepam 2 MG/ML VIAL IVP ONE (22:16)
[2017-04-07] MEDS: Haloperidol Lactate 5 MG/ML VIAL IVP ONE ×2 (01:31→13:52)
[2017-04-07] MEDS ORDERED: *HR* LORazepam 2 MG/ML VIAL IVP ONE ×2 (01:56→14:22)
[2017-04-07] MEDS: *HR* Enoxaparin 40 MG/0.4 ML SYRINGE SQ SCH (06:29)
[2017-04-07 06:47] LABS: BUN/Creatinine Ratio 21 (6-26); Blood Urea Nitrogen 18 mg/dL (7-20); Calcium 9.1 mg/dL (8.6-10.8); Carbon Dioxide 29 mEq/L (19-29); Chloride 98 mEq/L (98-109); Glucose 134 mg/dL (70-99); Osmolality,Calculated 288 (280-300); Potassium 4.6 mEq/L (3.5-4.5); Sodium 137 mEq/L (136-145); eGFR For African Americans > 60 (> 60); eGFR For Non-African Americans > 60 (> 60)
[2017-04-07 06:57] LABS: Carbamazepine (Tegretol) 1.4 mcg/mL (4.0-12.0)
[2017-04-07] MEDS: Insulin LISPRO 300 UNITS/3 ML VIAL SQ SCH ×4 (09:44→19:51)
[2017-04-07] MEDS: Fluconazole 100 MG TABLET PO SCH ×2 (09:45→16:14)
[2017-04-07] MEDS: Lactobacillus 1 EACH CAP.SPRINK PO SCH ×2 (09:45→19:51)
[2017-04-07] MEDS: chlorproMAZINE 25 MG TABLET PO SCH (09:46)
[2017-04-07] MEDS: CarBAMazepine XR (12 hr) 100 MG TAB PO SCH ×3 (09:46→16:19)
[2017-04-07] MEDS: Fenofibrate 54 MG TABLET PO SCH ×2 (09:47→16:13)
[2017-04-07] MEDS: Metoprolol XL (24 HR) Succ 50 MG TAB.ER.24H PO SCH ×2 (09:47→16:14)
[2017-04-07] MEDS: Miconazole 2% cream 118 GM TUBE TP SCH ×2 (10:05→19:51)
[2017-04-07] MEDS: Latanoprost 2.5 ML BOTTLE BOTH EYES SCH ×2 (10:08→19:52)
--- NOTE | 2017-04-07 10:58 | Internal Med Progress Note ---
Date of Encounter: 04/07/17 Time of Encounter: 10:50 - Assessment and plan (1) Urinary tract infection Current Visit: Yes Status: Acute Assessment and plan: April 07. Continue Rocephin and lactobacillus Qualifiers: Urinary tract infection type: acute cystitis Hematuria presence: without hematuria Qualified Code(s): N30.00 - Acute cystitis without hematuria (2) Altered mental status Current Visit: Yes Status: Acute Assessment and plan: April 07. Continue BiPAP Qualifiers: Altered mental status type: unspecified Qualified Code(s): R41.82 - Altered mental status, unspecified (3) DM type 2 (diabetes mellitus, type 2) Current Visit: Yes Status: Chronic Assessment and plan: April 07. Continue Levemir, Glucophage, and Accu-Cheks with SSI. Qualifiers: Diabetes mellitus complication status: with kidney complications Diabetes mellitus complication detail: with chronic kidney disease Diabetes mellitus rn long term care insulin use: with nursing home use Chronic kidney disease stage: stage 3 (moderate) Qualified Code(s): E11.22 - Type 2 diabetes mellitus with diabetic chronic kidney disease; N18.3 - Chronic kidney disease, stage 3 ( moderate); Z79.4 - [facility] (current) use of insulin (4) CKD (chronic kidney disease) stage 3, GFR 30-59 ml/min Current Visit: Yes Status: Chronic Assessment and plan: April 07. Renal indices significantly improved. (5) Hypothyroidism Current Visit: Yes Status: Chronic Assessment and plan: April 07. TSH was normal at 1.930 on 02/10/2017. Continue Synthroid. Qualifiers: Hypothyroidism type: unspecified Qualified Code(s): E03.9 - Hypothyroidism , unspecified - Subjective Interval history: April 07. She is wearing BiPAP and is sleeping. It did not awaken her. - Constitutional Vitals: Temp Pulse Resp BP Pulse Ox 98.2 F 85 18 128/77 95 04/07/17 10:28 04/07/17 10:28 04/07/17 10:28 04/07/17 10:28 04/07/17 10:28 Exam: She is resting comfortably in bed. Her saturation is approximately 96% with heart rate 88. I reviewed her medications and lab results. Internal Medicine: Result - Labs CBC & Chem 7: 04/05/17 21:48 04/07/17 05:55 Labs: BMP 04/07/17 05:55 Sodium 137 Potassium 4.6 H Chloride 98 Carbon Dioxide 29 BUN 18 Creatinine 0.85 Glucose 134 H Calcium 9.1 - ABG Interpretation ABG results: ABG ABG pH 7.23 pH Units (7.32-7.45) L 04/06/17 20:03 ABG pCO2 89 mmHg (35-45) H* 04/06/17 20:03 ABG pO2 120 mmHg (85-104) H 04/06/17 20:03 ABG O2 Saturation 97 % (95-98) 04/06/17 20:03 PT/INR, D-dimer PT 14.6 Seconds (9.4-12.1) H 04/05/17 21:48 - VTE Documentation of Mechanical Device: Graduated compression elastic hosiery Consult Discharge Plan - Plan Referrals: Neal Jacobsen MD [Primary Care Provider] - 1 week
[2017-04-07 12:00] LABS: ABG Base Excess 7.1 mEq/L (-2.0 to 3.0); ABG HCO3 35 mEq/L (21-27); ABG PCO2 89 mmHg (35-45); ABG PO2 98 mmHg (85-104); ABG TCO2 37.8 mEq/L (20-26)
[2017-04-07 12:01] LABS: ABG Oxygen Saturation 95 % (95-98); Blood Gas BiPAP(E) 8 cm H2O; Blood Gas BiPAP(I) 18 cm H2O; Blood Gas FiO2 36 %; Blood Gas Respiration Rate 20
[2017-04-07] MEDS ORDERED: Haloperidol Lactate 5 MG/ML VIAL IVP ONE (13:46)
[2017-04-07] MEDS ORDERED: *HR* LORazepam 2 MG/ML VIAL ONE (14:22)
[2017-04-07] MEDS: Valproic Acid Oral Soln 250 MG/5 ML UDC PO SCH (16:50)
[2017-04-07] MEDS ORDERED: SODIUM CHLORIDE 0.9% IVPB SCH (17:00)
[2017-04-07] MEDS ORDERED: CHLORPROMAZINE IVPB SCH (17:00)
[2017-04-07] MEDS: Insulin DETEMIR 100 UNIT/ML per UNIT SQ SCH (19:51)
[2017-04-07] MEDS: *HR* LORazepam 2 MG/ML VIAL IVP PRN (19:52)
--- NOTE | 2017-04-07 21:51 | Electrocardiograph Report ---
[address] [address] Test Date: 2017-04-05 Pat Name: Bren Rodriguez Department: [id number] Room: [facility] Gender: F Dairy Consultant: [id number] : 1940 Requested By: Ishmael Guevara Order Number: [id number] Reading MD: Russell Collado MD Measurements Intervals [place] Rate: 95 P: 50 NM: 213 QRS: 23 QRSD: 96 T: 58 QT: 333 QTc: 386 Interpretive Statements SINUS RHYTHM WITH FIRST DEGREE AV BLOCK LOW QRS VOLTAGE IN PRECORDIAL LEADS BASELINE ARTIFACT Electronically Signed On 04-07-2017 21:50:09 EDT by Russell Collado MD
[2017-04-08] MEDS: Valproic Acid Oral Soln 250 MG/5 ML UDC PO SCH ×3 (02:56→07:55)
[2017-04-08] MEDS: *HR* LORazepam 2 MG/ML VIAL IVP PRN ×2 (04:06→08:05)
[2017-04-08] MEDS: *HR* Enoxaparin 40 MG/0.4 ML SYRINGE SQ SCH (05:30)
[2017-04-08 06:12] LABS: Basophils % 0.6 %; Eosinophils # 0.3 K/mcL (0.0-0.6); Hematocrit 36.9 % (35.3-44.9); Hemoglobin 11.3 g/dL (11.5-15.4); Immature Granulocytes % 0.8 % (0-4); Lymphocytes # 0.9 K/mcL (0.6-4.6); Lymphocytes % 14.1 %; Mean Corpuscular HGB Conc 30.6 g/dL (31.6-35.5); Mean Corpuscular Volume 94.9 fL (83.0-100.0); Monocytes # 0.7 K/mcL (0.0-1.3); Monocytes % 11.5 %; Neutrophils # 4.4 K/mcL (1.6-8.9); Platelet Count 386 K/mcL (140-400); Red Blood Count 3.89 M/mcL (3.82-4.97); Red Cell Distribution Width 13.5 % (11.5-14.5)
[2017-04-08 07:26] VITALS: BP 99/37
[2017-04-08] MEDS: Fenofibrate 54 MG TABLET PO SCH (07:55)
[2017-04-08] MEDS: Lactobacillus 1 EACH CAP.SPRINK PO SCH (07:56)
[2017-04-08] MEDS: Insulin LISPRO 300 UNITS/3 ML VIAL SQ SCH (07:58)
[2017-04-08] MEDS: Latanoprost 2.5 ML BOTTLE BOTH EYES SCH (07:58)
[2017-04-08] MEDS: Miconazole 2% cream 118 GM TUBE TP SCH (07:59)
[2017-04-08] MEDS: Fluconazole 100 MG TABLET PO SCH (07:59)
[2017-04-08] MEDS: Metoprolol XL (24 HR) Succ 50 MG TAB.ER.24H PO SCH (08:08)
[2017-04-08 08:50] LABS: ABG PH 7.29 pH Units (7.32-7.45)
[2017-04-08 08:52] LABS: ABG HCO3 35 mEq/L (21-27); ABG PCO2 73 mmHg (35-45); ABG PO2 72 mmHg (85-104)
[2017-04-08 08:53] LABS: ABG Base Excess 7.9 mEq/L (-2.0 to 3.0); ABG Oxygen Saturation 91 % (95-98); ABG TCO2 36.8 mEq/L (20-26); Blood Gas FiO2 28 %; Blood Gas Liter Flow 2 L/MIN; Blood Gas Respiration Rate 22
--- NOTE | 2017-04-08 09:55 | Discharge Summary ---
Date of Encounter: 04/08/17 Time of Encounter: 09:45 - Discharge Diagnosis (1) Urinary tract infection Priority: Primary Status: Acute Qualifiers: Urinary tract infection type: acute cystitis Hematuria presence: without hematuria Qualified Code(s): N30.00 - Acute cystitis without hematuria (2) Altered mental status Priority: Secondary Status: Acute Qualifiers: Altered mental status type: unspecified Qualified Code(s): R41.82 - Altered mental status, unspecified (3) DM type 2 (diabetes mellitus, type 2) Priority: Secondary Status: Chronic Qualifiers: Diabetes mellitus complication status: with kidney complications Diabetes mellitus complication detail: with chronic kidney disease Diabetes mellitus senior living insulin use: with terminal carman use Chronic kidney disease stage: stage 3 (moderate) Qualified Code(s): E11.22 - Type 2 diabetes mellitus with diabetic chronic kidney disease; N18.3 - Chronic kidney disease, stage 3 ( moderate); Z79.4 - long term acute care registered nurse (current) use of insulin (4) CKD (chronic kidney disease) stage 3, GFR 30-59 ml/min Priority: Secondary Status: Chronic (5) Hypothyroidism Priority: Secondary Status: Chronic Qualifiers: Hypothyroidism type: unspecified Qualified Code(s): E03.9 - Hypothyroidism , unspecified - Discharge Medications Prescriptions: Cephalexin [Keflex] 500 mg PO Q8H 3 Days Home Medications: Bisacodyl [Woman's Laxative] 10 mg PO DAILY PRN 04/05/17 [History] Budesonide/Formoterol 160/4.5 [Symbicort 160/4.5] 1 puff IH BIDR 04/05/17 [ History] CarBAMazepine XR [Tegretol Xr] 100 mg PO DAILY 04/05/17 [History] Cetirizine HCl [Zyrtec] 10 mg PO DAILY 04/05/17 [History] Chlorpromazine HCl 200 mg PO DAILY 04/05/17 [History] Citalopram [CeleXA] 20 mg PO DAILY 04/05/17 [History] Clopidogrel [Plavix] 75 mg PO DAILY 04/05/17 [History] Divalproex (24 HR) [Depakote ER (24 HR)] 500 mg PO HS 04/05/17 [History] Divalproex Sodium [Depakote] 250 mg PO HS 04/05/17 [History] Ergocalciferol (VITAMIN D2) [Vitamin D2] 50,000 unit PO DAILY 04/05/17 [History] Fenofibrate Nanocrystallized [Triglide] 160 mg PO DAILY 04/05/17 [History] Fluticasone Propionate Nasal [Flonase] 50 mcg NS DAILY 04/05/17 [History] Furosemide [Lasix] 20 mg PO DAILY 04/05/17 [History] HYDROcodone/Acet 5/325 mg [[place] 5-325 mg] 1 tab PO Q6H PRN 04/05/17 [History] Ibuprofen [Motrin] 600 mg PO Q6HR PRN 04/05/17 [History] Insulin ASPART [NovoLOG] 1 unit SQ BID 04/05/17 [History] Insulin Glargine [Lantus] 43 unit SQ HS 04/05/17 [History] Lactulose [Kristalose] 20 gm PO DAILY PRN 04/05/17 [History] Levothyroxine [Synthroid] 88 mcg PO 0630 04/05/17 [History] Loperamide HCl [Imodium A-D] 2 mg PO Q4H PRN 04/05/17 [History] Medroxyprogesterone Acetate [Provera] 5 mg PO DAILY 04/05/17 [History] Metformin HCl [Fortamet] 500 mg PO DAILY 04/05/17 [History] Metoprolol XL (24 HR) Succ [Toprol Xl] 50 mg PO DAILY 04/05/17 [History] Multivitamin [Multivitamins] 1 each PO DAILY 04/05/17 [History] Ranitidine HCl [Acid Thread Separator] 75 mg PO BID 04/05/17 [History] Travoprost [Travatan Z] 5 ml OP BID 04/05/17 [History] Trihexyphenidyl HCl 1 mg PO DAILY 04/05/17 [History] carBAMazepine [Tegretol Xr] 200 mg PO BID 04/05/17 [History] Cephalexin [Keflex] 500 mg PO Q8H 3 Days 04/08/17 [Rx] Fluconazole [Diflucan] 150 mg PO DAILY 3 Days 04/08/17 [Rx] Lactobacillus [Culturelle] 1 each PO BID 3 Days 04/08/17 [Rx] Allergies/Adverse Reactions: 3 Allergy/AdvReac Type Severity Reaction Status Date / Time tuberculin, purified protein Allergy Hives Verified 04/05/17 21:08 deriva Date of admission: 04/06/17 18:15 Primary care physician: Neal Jacobsen MD - Patient Status Disposition: Transfer SNF Condition: Fair Functional capacity at discharge: wheelchair bound Overall status at discharge: patient is progressing back to baseline - Ambulatory Orders Ambulatory Orders: Consult to Speech Therapy [CONS] Location: Determined By Patient - Discharge Instructions Follow Up With: Neal Jacobsen MD [Primary Care Provider] - 1 week - Diet and Activity Activity: resume usual activities as tolerated, wear oxygen at all times Diet: diabetic diet Hospital course: Ms. Rodriguez is a 76 year old female who was sent [facility] emergency from the [facility] after staff reported her to been lethargic most of the day. She was reported to have hypoxemia with saturation of 70% on room air. She had low grade fever. She was evaluated emergency room and felt to have UTI. ABG showed acute respiratory insufficiency with hypercarbia. She was admitted to [facility] floor for ongoing care needs. Initial orders were written by the emergency room physician. I saw her on April 06 and performed a history and physical. She was started empirically on Rocephin for UTI. Lactobacillus was also given. Urine culture returned showing Escherichia coli. She remained afebrile during her hospital stay. She will continue Keflex for 3 additional days at discharge with Lactobacillus. Her respiratory status improved slightly with use of BiPAP. She was frequently agitated requiring sedation. BiPAP was used intermittently during her hospital stay. An ABG on the day of discharge showed pH 7.29 with PCO2 of 73 and PO2 of 72. She will continue with nasal oxygen at the [facility]. IV fluids were given and her azotemia improved with BUN and creatinine being 18 and 0.5 respectively on April 07 with estimate GFR greater than 60. On April 08 she was stable for discharge back to [facility]. She will follow with Dr. Jacobsen there. - Time Spent with Patient Total time spent providing and/or coordinating discharge services: - Constitutional Vitals: Temp Pulse Resp BP Pulse Ox 99.1 F 116 26 99/37 92 04/08/17 07:12 04/08/17 07:12 04/08/17 07:12 04/08/17 07:12 04/08/17 07:12 - VTE Documentation of Mechanical Device: Graduated compression elastic hosiery
--- NOTE | 2017-04-08 10:01 | Physician Discharge Referral ---
ExtendedCare Referral Info Transfer To: [place] Provider in Charge: Arthur Provider in Charge after Transfer: PCP (Neal Jacobsen M.D.) Institutional Level of Care: Intermediate - Diagnosis (1) Urinary tract infection Priority: Primary Status: Acute (2) Altered mental status Priority: Secondary Status: Acute (3) DM type 2 (diabetes mellitus, type 2) Priority: Secondary Status: Chronic (4) CKD (chronic kidney disease) stage 3, GFR 30-59 ml/min Priority: Secondary Status: Chronic (5) Hypothyroidism Priority: Secondary Status: Chronic Prognosis: Fair Aware of Diagnosis: Family Aware of Prognosis: Family - Transfer Medications Prescriptions: Cephalexin [Keflex] 500 mg PO Q8H 3 Days Home Medications: Bisacodyl [Woman's Laxative] 10 mg PO DAILY PRN 04/05/17 [History] Budesonide/Formoterol 160/4.5 [Symbicort 160/4.5] 1 puff IH BIDR 04/05/17 [ History] CarBAMazepine XR [Tegretol Xr] 100 mg PO DAILY 04/05/17 [History] Cetirizine HCl [Zyrtec] 10 mg PO DAILY 04/05/17 [History] Chlorpromazine HCl 200 mg PO DAILY 04/05/17 [History] Citalopram [CeleXA] 20 mg PO DAILY 04/05/17 [History] Clopidogrel [Plavix] 75 mg PO DAILY 04/05/17 [History] Divalproex (24 HR) [Depakote ER (24 HR)] 500 mg PO HS 04/05/17 [History] Divalproex Sodium [Depakote] 250 mg PO HS 04/05/17 [History] Ergocalciferol (VITAMIN D2) [Vitamin D2] 50,000 unit PO DAILY 04/05/17 [History] Fenofibrate Nanocrystallized [Triglide] 160 mg PO DAILY 04/05/17 [History] Fluticasone Propionate Nasal [Flonase] 50 mcg NS DAILY 04/05/17 [History] Furosemide [Lasix] 20 mg PO DAILY 04/05/17 [History] HYDROcodone/Acet 5/325 mg [[place] 5-325 mg] 1 tab PO Q6H PRN 04/05/17 [History] Ibuprofen [Motrin] 600 mg PO Q6HR PRN 04/05/17 [History] Insulin ASPART [NovoLOG] 1 unit SQ BID 04/05/17 [History] Insulin Glargine [Lantus] 43 unit SQ HS 04/05/17 [History] Lactulose [Kristalose] 20 gm PO DAILY PRN 04/05/17 [History] Levothyroxine [Synthroid] 88 mcg PO 0630 04/05/17 [History] Loperamide HCl [Imodium A-D] 2 mg PO Q4H PRN 04/05/17 [History] Medroxyprogesterone Acetate [Provera] 5 mg PO DAILY 04/05/17 [History] Metformin HCl [Fortamet] 500 mg PO DAILY 04/05/17 [History] Metoprolol XL (24 HR) Succ [Toprol Xl] 50 mg PO DAILY 04/05/17 [History] Multivitamin [Multivitamins] 1 each PO DAILY 04/05/17 [History] Ranitidine HCl [Acid Community Services Officer] 75 mg PO BID 04/05/17 [History] Travoprost [Travatan Z] 5 ml OP BID 04/05/17 [History] Trihexyphenidyl HCl 1 mg PO DAILY 04/05/17 [History] carBAMazepine [Tegretol Xr] 200 mg PO BID 04/05/17 [History] Cephalexin [Keflex] 500 mg PO Q8H 3 Days 04/08/17 [Rx] Fluconazole [Diflucan] 150 mg PO DAILY 3 Days 04/08/17 [Rx] Lactobacillus [Culturelle] 1 each PO BID 3 Days 04/08/17 [Rx] Allergies/Adverse Reactions: 3 Allergy/AdvReac Type Severity Reaction Status Date / Time tuberculin, purified protein Allergy Hives Verified 04/05/17 21:08 deriva - Respiratory Orders Oxygen / L per min (Continue oxygen as previously ordered.) Smoking Cessation: Smoking cessation has been advised. For more information, call the [place] Tobacco Quit Line at 6-889-BJHZ-NOW. - Rehabiliation Orders Rehab Potential: Fair - Diet Orders No Concentrated Sweets CERTIFICATION: I certify that the transfer of the above named patient to an Extended Care Facility is necessary for the continuing treatment of the diagnosis listed. The above information is true and accurate reflection of patient's current condition. Confidential - Redisclosure prohibited without a patient's written consent.
[2017-04-08] MEDS ORDERED: FLUARIX QUAD 2017-18 36MOS UP/PF 0.5 ML SYRINGE IM ONE (10:29)
== END 2017-04-08 11:58 | DRG 690 ==
LOC: EMEROOPIK 21:05 → INPPIK 21:05
PROVIDERS: ADMIT Internal Medicine; ATTEND Internal Medicine

== ENCOUNTER 2020-05-15 12:25 | Inpatient (IN) ==
[2020-05-15] MEDS ORDERED: 0.9 % Sodium Chloride 500 ML IVC ONE (12:29)
[2020-05-15] MEDS ORDERED: Haloperidol Lactate 5 MG/ML VIAL IVP ONE (12:29)
[2020-05-15] MEDS ORDERED: 0.9 % Sodium Chloride 1,000 ML IVC SCH (12:30)
[2020-05-15 12:51] LABS: Basophils # 0.1 K/mcL (0.0-0.2); Basophils % 0.8 %; Eosinophils # 0.2 K/mcL (0.0-0.6); Eosinophils % 2.9 %; Hematocrit 44.3 % (35.3-44.9); Hemoglobin 13.5 g/dL (11.5-15.4); Immature Granulocytes % 1.2 % (0-4); Lymphocytes # 1.7 K/mcL (0.6-4.6); Lymphocytes % 25.3 %; Mean Corpuscular HGB Conc 30.5 g/dL (31.6-35.5); Mean Corpuscular Hemoglobin 31.7 pg (28.0-33.3); Mean Platelet Volume 13.5 fL (9.4-12.4); Monocytes # 0.6 K/mcL (0.0-1.3); Monocytes % 9.1 %; Platelet Count 261 K/mcL (140-400); Red Blood Count 4.26 M/mcL (3.82-4.97); Red Cell Distribution Width 14.5 % (11.5-14.5); Segmented Neutrophils % 60.7 %; White Blood Count 6.6 K/mcL (4.3-11.1)
[2020-05-15 13:07] LABS: Carbamazepine (Tegretol) 4 mcg/mL (4-12); Valproate 17 mcg/mL (50-100)
[2020-05-15 13:13] LABS: Calcium 9.2 mg/dL (8.6-10.3); Potassium 3.3 mEq/L (3.5-5.1)
[2020-05-15 13:44] LABS: Bilirubin,Urine Small (Negative); Blood,Urine Trace-intact (Negative); Clarity,Urine Clear (Clear); Color,Urine Dark Yellow (Yellow); Glucose,Urine (UA) Normal (Normal); Ketones,Urine Trace mg/dL (Negative); Leukocyte Esterase,Urine Negative (Negative); Nitrite,Urine Negative (Negative); PH,Urine 5.5 pH Units (5.0-8.0); Protein,Urine Negative (Neg-Trace); Urobilinogen,Urine Normal (Normal)
[2020-05-15 13:50] LABS: Bacteria,Urine Many per hpf (None-Few); Mucus,Urine Few per lpf (None-Few); Squamous Epithelial Cell,Urine Few per hpf (None-Few)
[2020-05-15] MEDS ORDERED: Ondansetron 4 MG/2 ML VIAL IVP PRN (13:57)
[2020-05-15] MEDS ORDERED: Naloxone 0.4 MG/ML INJ IVP PRN (13:57)
[2020-05-15] MEDS: D5% in Water 1,000 ML IVC SCH ×2 (15:22→23:06)
[2020-05-16 06:11] LABS: Basophils % 0.4 %; Eosinophils # 0.2 K/mcL (0.0-0.6); Eosinophils % 3.9 %; Hematocrit 38.2 % (35.3-44.9); Hemoglobin 11.7 g/dL (11.5-15.4); Immature Granulocytes % 1.3 % (0-4); Lymphocytes # 1.7 K/mcL (0.6-4.6); Lymphocytes % 36.6 %; Mean Corpuscular HGB Conc 30.6 g/dL (31.6-35.5); Mean Corpuscular Hemoglobin 31.5 pg (28.0-33.3); Mean Platelet Volume 13.3 fL (9.4-12.4); Monocytes # 0.3 K/mcL (0.0-1.3); Monocytes % 7.3 %; Neutrophils # 2.4 K/mcL (1.6-8.9); Platelet Count 239 K/mcL (140-400); Red Blood Count 3.71 M/mcL (3.82-4.97); Red Cell Distribution Width 14.3 % (11.5-14.5); Segmented Neutrophils % 50.5 %; White Blood Count 4.7 K/mcL (4.3-11.1)
[2020-05-16] MEDS: D5% in Water 1,000 ML IVC SCH ×3 (06:11→20:53)
[2020-05-16 06:28] LABS: Albumin 2.6 g/dL (3.5-5.7); Albumin/Globulin Ratio 0.9 (1.1-2.2); Bilirubin,Total 0.6 mg/dL (0.3-1.0); Calcium 8.3 mg/dL (8.6-10.3); Globulin 2.8 g/dL (2.4-3.5); Magnesium 1.8 mg/dL (1.6-2.6); Phosphorous 2.1 mg/dL (2.7-4.5); Potassium 3.1 mEq/L (3.5-5.1); Total Protein 5.4 g/dL (6.4-8.9)
[2020-05-16] MEDS ORDERED: Ibuprofen 600 MG TABLET PO PRN (09:02)
[2020-05-16] MEDS ORDERED: Lactulose Oral Soln 20 GM/30 ML UDC PO PRN (09:02)
[2020-05-16] MEDS: CarBAMazepine XR (12 hr) 100 MG TAB PO SCH (20:00)
[2020-05-16] MEDS: Latanoprost 2.5 ML BOTTLE BOTH EYES SCH (20:10)
[2020-05-17] MEDS: D5% in Water 1,000 ML IVC SCH (04:58)
[2020-05-17 07:43] LABS: Hematocrit 35.5 % (35.3-44.9); Hemoglobin 11.3 g/dL (11.5-15.4); Mean Corpuscular HGB Conc 31.8 g/dL (31.6-35.5); Mean Corpuscular Hemoglobin 31.7 pg (28.0-33.3); Mean Corpuscular Volume 99.4 fL (83.0-100.0); Mean Platelet Volume 12.6 fL (9.4-12.4); Platelet Count 231 K/mcL (140-400); Red Blood Count 3.57 M/mcL (3.82-4.97); Red Cell Distribution Width 13.6 % (11.5-14.5); White Blood Count 5.3 K/mcL (4.3-11.1)
[2020-05-17] MEDS: Famotidine 20 MG TABLET PO SCH (08:13)
[2020-05-17] MEDS: CarBAMazepine XR (12 hr) 100 MG TAB PO SCH ×2 (08:14→22:38)
[2020-05-17] MEDS: Metoprolol XL (24 HR) Succ 50 MG TAB.ER.24H PO SCH (08:14)
[2020-05-17] MEDS: Mirtazapine 15 MG TABLET PO SCH (08:14)
[2020-05-17 08:17] LABS: Thyroid Stimulating Hormone 1.18 mcIU/mL (0.340-5.600)
[2020-05-17 08:29] LABS: Alanine Aminotransferase 9 Units/L (7-52); Albumin 2.4 g/dL (3.5-5.7); Albumin/Globulin Ratio 0.9 (1.1-2.2); Alkaline Phosphatase 46 Units/L (34-104); Aspartate Amino Transferase 12 Units/L (13-39); BUN/Creatinine Ratio 43 (6-26); Bilirubin,Total 0.7 mg/dL (0.3-1.0); Blood Urea Nitrogen 43 mg/dL (8-23); Calcium 7.7 mg/dL (8.6-10.3); Carbon Dioxide 25 mEq/L (23-29); Chloride 110 mEq/L (98-107); Globulin 2.6 g/dL (2.4-3.5); Glucose 264 mg/dL (70-105); Magnesium 1.5 mg/dL (1.6-2.6); Osmolality,Calculated 318 (280-300); Potassium 3.2 mEq/L (3.5-5.1); Sodium 144 mEq/L (136-145); eGFR For African Americans > 60 (> 60); eGFR For Non-African Americans 53 (> 60)
[2020-05-17] MEDS ORDERED: Dextrose Gel 15 GM/37.5 ML TUBE PO PRN ×2 (11:38)
[2020-05-17] MEDS ORDERED: *HR* Dextrose 50 % in Water (Vial) 50 ML VIAL IVP PRN (11:38)
[2020-05-17] MEDS ORDERED: D5% in Water 1,000 ML IVC PRN (11:38)
[2020-05-17] MEDS: Insulin LISPRO 300 UNITS/3 ML VIAL SQ SCH ×2 (12:29→22:37)
[2020-05-17] MEDS: D5% in 0.45% NACL 1,000 ML IVC SCH (14:30)
[2020-05-17] MEDS: Latanoprost 2.5 ML BOTTLE BOTH EYES SCH (22:43)
[2020-05-18] MEDS: Insulin LISPRO 300 UNITS/3 ML VIAL SQ SCH ×4 (00:30→18:49)
[2020-05-18] MEDS: D5% in 0.45% NACL 1,000 ML IVC SCH ×2 (04:05→20:07)
[2020-05-18] MEDS: Metoprolol XL (24 HR) Succ 50 MG TAB.ER.24H PO SCH (09:12)
[2020-05-18] MEDS: Mirtazapine 15 MG TABLET PO SCH (09:12)
[2020-05-18] MEDS: Famotidine 20 MG TABLET PO SCH (09:12)
[2020-05-18] MEDS: CarBAMazepine XR (12 hr) 100 MG TAB PO SCH ×2 (09:12→21:52)
[2020-05-18 10:49] LABS: Hematocrit 36.9 % (35.3-44.9); Hemoglobin 11.8 g/dL (11.5-15.4); Mean Corpuscular Hemoglobin 31.2 pg (28.0-33.3); Mean Corpuscular Volume 97.6 fL (83.0-100.0); Mean Platelet Volume 12.2 fL (9.4-12.4); Platelet Count 227 K/mcL (140-400); Red Blood Count 3.78 M/mcL (3.82-4.97); Red Cell Distribution Width 13.1 % (11.5-14.5); White Blood Count 5.9 K/mcL (4.3-11.1)
[2020-05-18 11:10] LABS: Alanine Aminotransferase 15 Units/L (7-52); Albumin 2.5 g/dL (3.5-5.7); Alkaline Phosphatase 54 Units/L (34-104); Aspartate Amino Transferase 33 Units/L (13-39); BUN/Creatinine Ratio 27 (6-26); Blood Urea Nitrogen 23 mg/dL (8-23); Calcium 7.9 mg/dL (8.6-10.3); Carbon Dioxide 24 mEq/L (23-29); Chloride 111 mEq/L (98-107); Globulin 2.5 g/dL (2.4-3.5); Glucose 204 mg/dL (70-105); Magnesium 1.6 mg/dL (1.6-2.6); Osmolality,Calculated 306 (280-300); Potassium 3.6 mEq/L (3.5-5.1); Sodium 143 mEq/L (136-145); eGFR For African Americans > 60 (> 60); eGFR For Non-African Americans > 60 (> 60)
[2020-05-18] MEDS: Latanoprost 2.5 ML BOTTLE BOTH EYES SCH (21:53)
[2020-05-19] MEDS: Insulin LISPRO 300 UNITS/3 ML VIAL SQ SCH ×3 (01:34→12:32)
[2020-05-19] MEDS: Famotidine 20 MG TABLET PO SCH (10:07)
[2020-05-19] MEDS: CarBAMazepine XR (12 hr) 100 MG TAB PO SCH (10:08)
[2020-05-19] MEDS: Mirtazapine 15 MG TABLET PO SCH (10:08)
[2020-05-19] MEDS: Metoprolol XL (24 HR) Succ 50 MG TAB.ER.24H PO SCH (10:08)
[2020-05-19] MEDS: D5% in 0.45% NACL 1,000 ML IVC SCH (10:10)
[2020-05-19 18:36] VITALS: BP 115/61
== END 2020-05-19 18:45 | disposition hospice, inpatient (51) | DRG 640 ==
LOC: EMEROOPIK 12:25 → INPPIK 12:25
PROVIDERS: ADMIT Family Medicine; ATTEND Family Medicine

== ENCOUNTER 2020-05-19 17:16 | Inpatient (IN) ==
[2020-05-19] MEDS ORDERED: Ondansetron 4 MG/2 ML VIAL IVP PRN (17:54)
[2020-05-19] MEDS ORDERED: Bisacodyl 10 MG RECTAL SUPPOSITORY RC PRN (17:54)
[2020-05-19] MEDS: Haloperidol Oral Conc 10 MG/5 ML UDC PO PRN (21:01)
[2020-05-20] MEDS: Haloperidol Oral Conc 10 MG/5 ML UDC PO PRN (01:46)
[2020-05-20] MEDS: Morphine Sulfate 2 MG/ML SYRINGE IVP PRN ×3 (10:21→22:12)
[2020-05-21] MEDS: Morphine Sulfate 2 MG/ML SYRINGE IVP PRN ×5 (05:49→19:50)
[2020-05-21] MEDS: *HR* LORazepam 2 MG/ML VIAL IVP PRN ×4 (08:41→19:49)
[2020-05-22] MEDS: Morphine Sulfate 2 MG/ML SYRINGE IVP PRN ×6 (06:18→22:36)
[2020-05-22] MEDS: *HR* LORazepam 2 MG/ML VIAL IVP PRN ×5 (06:18→22:36)
[2020-05-23] MEDS: *HR* LORazepam 2 MG/ML VIAL IVP PRN ×8 (00:56→21:54)
[2020-05-23] MEDS: Morphine Sulfate 2 MG/ML SYRINGE IVP PRN ×8 (01:05→21:55)
[2020-05-23] MEDS: Atropine Sulfate 1% 40 DROP/2 ML BOTTLE SL PRN ×3 (08:00→15:39)
[2020-05-23] MEDS: Morphine Sulfate Oral CONC 10 MG/0.5 ML ORAL.SYG SL PRN (12:16)
[2020-05-23] MEDS: *HR* LORazepam Oral Conc 2 MG/ML SL PRN (12:16)
[2020-05-24] MEDS: *HR* LORazepam 2 MG/ML VIAL IVP PRN ×3 (02:26→17:36)
[2020-05-24] MEDS: Morphine Sulfate 2 MG/ML SYRINGE IVP PRN ×6 (02:26→22:15)
[2020-05-24] MEDS: Atropine Sulfate 1% 40 DROP/2 ML BOTTLE SL PRN ×4 (08:01→17:36)
[2020-05-24] MEDS: Morphine Sulfate Oral CONC 10 MG/0.5 ML ORAL.SYG SL PRN ×2 (10:10→15:07)
[2020-05-24] MEDS ORDERED: Scopolamine Patch 1.5 MG PATCH.TD72 TD SCH (10:30)
[2020-05-24] MEDS: *HR* LORazepam Oral Conc 2 MG/ML SL PRN ×3 (14:34→22:15)
[2020-05-25] MEDS: *HR* LORazepam Oral Conc 2 MG/ML SL PRN ×4 (00:35→08:23)
[2020-05-25] MEDS: Morphine Sulfate 2 MG/ML SYRINGE IVP PRN ×2 (00:36→02:39)
[2020-05-25] MEDS: Morphine Sulfate Oral CONC 10 MG/0.5 ML ORAL.SYG SL PRN ×3 (05:05→13:24)
[2020-05-25 07:29] VITALS: BP 108/61
[2020-05-25] MEDS ORDERED: Acetaminophen 650 MG RECTAL SUPP RC PRN (13:42)
[2020-05-25] MEDS ORDERED: Morphine Sulfate Oral CONC 10 MG/0.5 ML ORAL.SYG SL ONE (14:10)
== END 2020-05-25 16:37 | disposition hospice, inpatient (51) | DRG 64 ==
LOC: INPPIK 18:46
PROVIDERS: ADMIT Family Medicine; ATTEND Family Medicine